=== PATIENT | male | born 1950 | race Caucasian/White ===

== ENCOUNTER 2019-05-21 06:04 | Day surgery (SDC) | payer MEDICARE, BC ==
[~2019-05-21] VITALS: Ht 185.4 cm; Wt 112.0 kg
[~2019-05-21 06:04] MED LIST: AMLO10 PO; ASPI81CH; CARV25 PO; CENTRUM SILVER1 EAC4; CLON.1; CYAN500 PO; LOSARTAN-HCTZ1 EAC1; METF500C PO; SIMV40; TRULICITY0.75 MG/0.; TRULICITY0.75 MG/0. SC; Vitamin D2000 UNIT PO
== END 2019-05-21 08:20 | disposition home or self-care (01) ==
LOC: ORSCSDS 06:04
PROVIDERS: Ophthalmology
PROC: 08RK3JZ Replacement of Left Lens with Synthetic Substitute, Percutaneous Approach (ICD-10-PCS; principal; 2019-05-21 07:30)
DX: H25.12 Age-related nuclear cataract, left eye (principal); I10 Essential (primary) hypertension; E11.9 Type 2 diabetes mellitus without complications; G47.33 Obstructive sleep apnea (adult) (pediatric); Z79.899 Other long term (current) drug therapy; Z79.82 Long term (current) use of aspirin
CPT/HCPCS: 82947; J2001; J2250; J3010; J3301; J7120; V2632

== ENCOUNTER 2019-06-25 06:03 | Day surgery (SDC) | payer MEDICARE, BC ==
[~2019-06-25] VITALS: Ht 185.4 cm; Wt 116.0 kg
== END 2019-06-25 08:05 | disposition home or self-care (01) ==
LOC: ORSCSDS 06:03
PROVIDERS: Ophthalmology
PROC: 08RJ3JZ Replacement of Right Lens with Synthetic Substitute, Percutaneous Approach (ICD-10-PCS; principal; 2019-06-25 07:30)
DX: H25.11 Age-related nuclear cataract, right eye (principal); I10 Essential (primary) hypertension; E11.9 Type 2 diabetes mellitus without complications; Z87.891 Personal history of nicotine dependence; E66.9 Obesity, unspecified; Z68.33 Body mass index [BMI] 33.0-33.9, adult; Z79.899 Other long term (current) drug therapy; Z79.82 Long term (current) use of aspirin
CPT/HCPCS: 82947; J2001; J2250; J3010; J3301; J7120; V2632

== ENCOUNTER 2023-03-18 09:50 | Emergency (ER) | payer OTHER ==
[~2023-03-18] VITALS: Ht 185.4 cm; Wt 108.9 kg
[2023-03-18 09:59] VITALS: BP 159/89
== END 2023-03-18 10:36 | disposition home or self-care (01) ==
LOC: ER 09:50
DX: S50.852A Superficial foreign body of left forearm, initial encounter (principal); W45.8XXA Other foreign body or object entering through skin, initial encounter; Z79.82 Long term (current) use of aspirin; Z79.899 Other long term (current) drug therapy; Z79.84 Long term (current) use of oral hypoglycemic drugs; Z87.891 Personal history of nicotine dependence
CPT/HCPCS: 90714

== ENCOUNTER 2023-06-25 01:52 | Day surgery (SDC) | payer OTHER ==
[2023-06-25 13:44] VITALS: BP 160/77
[2023-06-25] MEDS ORDERED: OZEMPIC2 MG/0.75 SC (13:52)
== END 2023-06-25 14:00 | disposition home or self-care (01) ==
LOC: ATC 01:52
DX: I12.0 Hypertensive chronic kidney disease with stage 5 chronic kidney disease or end stage renal disease (principal); D63.1 Anemia in chronic kidney disease; N18.5 Chronic kidney disease, stage 5; E11.22 Type 2 diabetes mellitus with diabetic chronic kidney disease; Z87.891 Personal history of nicotine dependence; N40.0 Benign prostatic hyperplasia without lower urinary tract symptoms
CPT/HCPCS: 96372; Q5106

== ENCOUNTER → 2025-10-17 | Outpatient (CLI) | payer OTHER ==
[~2025-10-17] MED LIST changes: +OZEMPIC2 MG/0.75 SC
== END ==
LOC: LAB 12:35 → LAB SHORT 12:35
DX: R31.21 Asymptomatic microscopic hematuria (principal)
CPT/HCPCS: 87086